=== PATIENT | male | born 1975 | race Caucasian/White ===

== ENCOUNTER 2022-10-12 13:41 | Emergency (ER) | payer OTHER, MEDICARE ==
[~2022-10-12] VITALS: Ht 180.3 cm; Wt 77.3 kg
[~2022-10-12 13:41] MED LIST: ANUSOL-HC SUPPO25 MG RC; ATARAX 10MG10 MG/TAB PO; ATROPINE SULFATE5 ML OP; B-121000 MCG PO; BUSPAR DIVIDOSE15 MG PO; CALCIUM 600/VIT1 CA1 PO; COZAAR 25MG25 MG/TAB PO; COZAAR100 MG PO; DEBROX OT; DEPAKOTE500 MG PO; DESYREL 50MG50 MG PO; DUO-KAPS1 CAP PO; FISH OIL 500 M1 EAC1 PO; FISH OIL1000 MG PO; FLEXERIL 1010 MG/TAB PO; FOLIC ACID 11 MG/TA1 PO; HYDROCORTISONE30 GM RC; IMITREX100 MG PO; INDERAL 20MG20 MG PO; INDERAL LA 80MG80 MG PO; IRON325 M2 PO; K-DUR20 MEQ PO; KEPPRA 500MG500 MG PO; KEPPRA1000 MG PO; LIDODERM 5% PATC1 EA TP; LIPITOR 80MG80 MG PO; MAG-OX 400400 MG/TAB PO; MICARDIS40 MG PO; MULTI-VITAMIN W1 TA1 PO; NAPROSYN500 MG PO; NATURAL IRON65 MG; OCEAN NASAL SPR45 ML NS; OMEGA-3 1000 MG1 CAP PO; OMNIPRED 5 ML5 ML OP; PENTASA250 MG PO; PEPCID 20MG TAB20 MG PO; PERIACTIN 4MG TA4 MG PO; PRILOSEC 20MG20 MG PO; PROBIOTIC ACID1 EAC3 PO; PROTONIX 40MG T40 MG PO; PROZAC 20MG20 MG PO; RESTORIL 1515 MG/CAP PO; ROXICODONE 55 MG/TAB PO; SEROQUEL50 MG PO; SOLARAZE3% TOP; THIAMINE 1100 MG/TAB PO; TOPAMAX 25MG25 M1 PO; VALTREX 50500 MG/TAB PO; VALTREX1 GM PO; VIGAMOX 0.5% 3 M3 ML OP; VISTARIL 2525 MG/CAP PO; VITAMIN B12 1541 TAB PO; VITAMIN D 1001000 IU PO; VITAMIN D31000 I1 PO; VITAMIN D31000 IU PO; VITAMINC1000TA PO; VOLTAREN GEL 1%1 TU TP; ZOFRAN ODT4 MG PO
[2022-10-12 13:51] VITALS: TEMP 98.1
[2022-10-12 15:08] LABS: BASO % 1.2 % (0.0-2.0); EOS % 1.2 % (0.0-4.0); GRAN # 1.3 K/mm3 (1.4-6.5); HEMATOCRIT 40.8 % (42.0-52.0); HEMOGLOBIN 13.7 g/dl (13.5-18.0); LYMPH # 0.8 K/mm3 (1.2-3.4); LYMPH % 32.8 % (20.0-51.0); MEAN CELL VOLUME 93 fl (80.0-100.0); MEAN CORPUSCULAR HEMOGLOBIN 31 pg (27-31); MEAN CORPUSCULAR HGB CONC 34 g/dl (33.0-37.0); MEAN PLATELET VOLUME 9.5 fl (7.4-10.4); MONO # 0.3 K/mm3 (0.1-0.6); MONO % 13.4 % (1.7-9.3); PLATELET COUNT 150 K/mm3 (130-400); RED BLOOD COUNT 4.38 M/mm3 (4.20-5.60); REDCELL DISTRIBUTION WIDTH-CV 17.2 % (11.5-14.5)
[2022-10-12 15:08] LABS: COLLECTION METHOD CLEAN CATCH
[2022-10-12 15:15] LABS: SQUAMOUS EPITHELIAL 0-2 /hpf (0-10); URINE BACTERIA None Seen /hpf (NONE SEEN); URINE RBC 0-2 /hpf (0-2)
[2022-10-12 15:18] LABS: URINE APPEARANCE Clear (CLEAR/HAZY); URINE COLOR Amber (YELLOW)
[2022-10-12 15:19] LABS: URINE BLOOD 2+ (NEGATIVE); URINE GLUCOSE Negative (NEGATIVE); URINE KETONE 1+ (NEGATIVE); URINE NITRATE Negative (NEGATIVE); URINE PROTEIN(semi-quant) 3+ (NEGATIVE)
[2022-10-12 15:22] LABS: TRICYCLIC ANTIDEPRESS URINE NEGATIVE
[2022-10-12 15:32] LABS: ALANINE AMINOTRANSFERASE 48 U/L (0-55); ALKALINE PHOSPHATASE 90 U/L (40-150); ANION GAP 22 mmol/L (7-16); AST,SGOT 187 U/L (5-34); BILIRUBIN,TOTAL 0.4 mg/dL (0.2-1.2); BLOOD UREA NITROGEN 6 mg/dL (9-21); CALCIUM 8.5 mg/dL (8.4-10.2); CARBON DIOXIDE 18 mmol/L (22-29); CHLORIDE 99 mmol/L (98-107); CREATININE, serum 0.72 mg/dL (0.72-1.25); GLUCOSE 80 mg/dL (70-99); POTASSIUM 3.9 mmol/L (3.5-4.5); SODIUM 139 mmol/L (136-145); TOTAL PROTEIN 7.2 gm/dL (6.2-8.1)
[2022-10-12 15:36] LABS: ACETAMINOPHEN < 1.0 ug/mL (10-30); SALICYLATE < 5.0 mg/dL (15.0-30.0)
[2022-10-12 15:38] LABS: ALCOHOL(ethanol),MEDICAL 434 mg/dL (0-10)
[2022-10-12 18:47] VITALS: BP 147/82; PULSE 86
== END 2022-10-12 18:47 | disposition home or self-care (01) ==
LOC: COL.ER 13:41
PROVIDERS: Nurse Practitioner
DX: F10.129 Alcohol abuse with intoxication, unspecified (principal); F43.10 Post-traumatic stress disorder, unspecified; Y90.8 Blood alcohol level of 240 mg/100 ml or more

== ENCOUNTER 2023-06-08 16:03 | Inpatient (IN) | payer OTHER ==
[~2023-06-08] VITALS: Ht 180.3 cm; Wt 73.3 kg
[2023-06-08] VITALS (132 sets, daily range): BP systolic 116; BP diastolic 83; PULSE 90; TEMP 98.8; O2SAT 81–100
[~2023-06-08 16:03] MED LIST changes: +ATARAX 25MG25 MG/TAB PO; +FERROUS SU325 MG/TAB PO; +MOBIC15 MG PO; +NEURONTIN100 MG/CAP PO; +REFRESH TEARS 330 ML OU; -VISTARIL 2525 MG/CAP PO
[2023-06-08 16:47] LABS: BASO % 0.2 % (0.0-2.0); GRAN % 83.1 % (42.2-75.2); HEMATOCRIT 40.8 % (42.0-52.0); HEMOGLOBIN 14.3 g/dl (13.5-18.0); LYMPH # 0.3 K/mm3 (1.2-3.4); LYMPH % 4.2 % (20.0-51.0); MEAN CELL VOLUME 96 fl (80.0-100.0); MEAN CORPUSCULAR HEMOGLOBIN 34 pg (27-31); MEAN CORPUSCULAR HGB CONC 35 g/dl (33.0-37.0); MEAN PLATELET VOLUME 11.1 fl (7.4-10.4); MONO # 0.7 K/mm3 (0.1-0.6); MONO % 12.2 % (1.7-9.3); PLATELET COUNT 131 K/mm3 (130-400); RED BLOOD COUNT 4.25 M/mm3 (4.20-5.60); REDCELL DISTRIBUTION WIDTH-CV 14.2 % (11.5-14.5)
[2023-06-08 17:39] LABS: ALANINE AMINOTRANSFERASE 37 U/L (0-55); ALBUMIN 3.8 gm/dL (3.5-5.0); ALKALINE PHOSPHATASE 63 U/L (40-150); ANION GAP 18 mmol/L (7-16); AST,SGOT 104 U/L (5-34); BILIRUBIN,TOTAL 1.5 mg/dL (0.2-1.2); BLOOD UREA NITROGEN 11 mg/dL (9-21); CALCIUM 8.9 mg/dL (8.4-10.2); CARBON DIOXIDE 23 mmol/L (22-29); CHLORIDE 97 mmol/L (98-107); CREATININE, serum 1.26 mg/dL (0.72-1.25); GLUCOSE 133 mg/dL (70-99); LIPASE 16 U/L (8-78); POTASSIUM 3.3 mmol/L (3.5-4.5); SODIUM 138 mmol/L (136-145); TOTAL PROTEIN 7.3 gm/dL (6.2-8.1)
[2023-06-08 17:42] LABS: ALCOHOL(ethanol),MEDICAL < 10 mg/dL (0-10); MAGNESIUM < 0.6 mg/dL (1.6-2.6)
[2023-06-08 17:54] LABS: TSH w REFLEX 2.669 uIU/mL (0.350-4.940)
[2023-06-08 20:10] LABS: INR 1.1 (0.8-3.0)
--- NOTE | 2023-06-08 21:08 | NUR ---
PATIENT ARRIVED TO UNIT VIA COT ACCOMPANIED BY RN. PATIENT DOES NOT APPEAR TO BE IN DISTRESS AND ABLE TO ANSWER QUESTIONS/FOLLOW COMMANDS APPROPRIATELY AT THIS TIME.
[2023-06-09] VITALS (1100 sets, daily range): BP systolic 90–121; BP diastolic 61–88; PULSE 57–96; TEMP 97.5–98.4; O2SAT 82–100
--- NOTE | 2023-06-09 01:03 | NUR ---
SINCE ARRIVAL TO THE UNIT, PATIENT HAS BEEN ALERT BUT CONFUSED. MILD ANXIETY NOTED WELL OBSIOUS HALLUCINATIONS. CIWA BEING USED PER PROTOCOL. PATIENT STATES THAT HE IS TO GO TO [place] 06/09/23 FOR REHAB - UNSURE ON DETAILS. RN HAS NOT HEARD ANYTHING REGARDING THIS INFORMATION. PATIENT ALSO STATED THAT "MY LAST ALCOHOLIC DRINK WAS 2-3 WEEKS AGO". PATIENT IS HAVING BOUTS OF LOOSE STOOLS AND CLAIMS HE HAS HAD THIS FOR A COUPLE DAYS. UNABLE TO GET A URINE SAMPLE DUE TO LOOSE STOOL AND INABILITY TO FOLLOW INSTRUCTIONS. IN ADDITION, PATIENT IS CONTINUOUSLY PULLING SPO2 PROBE OFF - RN HAS TRIED REPLACING IT AND MOVING IT TO ANOTHER LOCATION MULTIPLE TIMES . PATIENT RAPIDLY GETS UP WHEN HE FEELS THE URGE TO DEFECATE/URINATE - STAFF IS UNABLE TO COAX HIM TO SLOWLY MOVE TO COMMODE TO DECREASE FALL RISK. PATIENT IS IN OBSERVABLE AREA AND BED IS IN LOW POSITION. SEIZURE PERCAUTIONS IN PLACE.
--- NOTE | 2023-06-09 03:50 | NUR ---
PRECEDEX GTT STARTED PER HOSPITALIST DUE TO PATIENT REQUIRING 1-2MG OF ATIVAN Q1HR. PATIENT IS FREQUENTLY BECOMING ANXIOUS AND AGITATED WHEN NEEDING TO USE THE RESTROOM - MULTIPLE BOUTS OF LOOSE DIARRHEA REQUIRING BED CHANGES. STAFF IS UNABLE TO REDIRECT HIM OR GET HIM TO MOVE SLOWLY - 3 PERSON ASSIST REQUIRED TO SAFELY GET PATIENT TO COMMODE OR TO LIE BACK DOWN. PATIENT UNWILLING TO USE BEDPAN. PATIENT SAFETY AT HIGH RISK.
[2023-06-09 05:48] LABS: BASO % 0.3 % (0.0-2.0); EOS % 0.3 % (0.0-4.0); GRAN # 2.7 K/mm3 (1.4-6.5); LYMPH # 0.5 K/mm3 (1.2-3.4); LYMPH % 12.2 % (20.0-51.0); MEAN CELL VOLUME 97 fl (80.0-100.0); MEAN CORPUSCULAR HGB CONC 34 g/dl (33.0-37.0); MEAN PLATELET VOLUME 10.4 fl (7.4-10.4); MONO # 0.7 K/mm3 (0.1-0.6); MONO % 17.9 % (1.7-9.3); PLATELET COUNT 92 K/mm3 (130-400); REDCELL DISTRIBUTION WIDTH-CV 14.5 % (11.5-14.5)
[2023-06-09 05:57] LABS: MEAN CORPUSCULAR HEMOGLOBIN 33 pg (27-31)
[2023-06-09 06:04] LABS: CALCIUM 7.7 mg/dL (8.4-10.2); CREATININE, serum 0.87 mg/dL (0.72-1.25); POTASSIUM 3.3 mmol/L (3.5-4.5)
--- NOTE | 2023-06-09 07:47 | NUR ---
Patient has been reported to be voilent, startles easily, and has been impulsive. Currently he is on precedex and CIWA protocol. Dr just started valium taper and added antipsychotic. Magnesium is critically low at 0.7 per lab this am, and will have replacements. Potassium protocol has been implemented and is currently being replaced PO. CIWAs are currently q2, neuro q4 hr at this time. Will continue to monitor for significant changes.
[2023-06-09] MEDS ORDERED: BUSPAR 30MG30 MG/TAB PO (08:52)
[2023-06-09] MEDS ORDERED: REFRESH CELLUVI1 SOL OU (08:53)
[2023-06-09] MEDS ORDERED: VITAMIN D31000 IU PO (08:53)
[2023-06-09] MEDS ORDERED: B-121000 MCG PO (08:54)
[2023-06-09] MEDS ORDERED: PEPCID 20MG TAB20 MG PO (08:58)
[2023-06-09] MEDS ORDERED: FOLIC ACID 11 MG/TA1 PO (09:00)
[2023-06-09] MEDS ORDERED: FERROUS SU325 MG/TAB PO (09:00)
[2023-06-09] MEDS ORDERED: NEURONTIN100 MG/CAP PO (09:00)
[2023-06-09] MEDS ORDERED: LIDODERM 5% PATC1 EA TP (09:01)
[2023-06-09] MEDS ORDERED: MAG-OX 400400 MG/TAB PO (09:02)
[2023-06-09] MEDS ORDERED: NATURE'S BLEND100 M2 PO (09:03)
[2023-06-09] MEDS ORDERED: SEROQUEL50 MG PO (09:03)
[2023-06-09] MEDS ORDERED: CENTRUM SILVER1 TAB PO (09:03)
[2023-06-09] MEDS ORDERED: DESYREL 50MG50 MG PO (09:04)
--- NOTE | 2023-06-09 15:51 | NUR ---
Check Writer Salesperson collaborated with Mattie [place] Check Writer Salesperson and Luci Jimenez Post Form Remover to discuss discharge planning as patient is not oriented at this time. Mattie advised patient is still living in [place] and has primary care through the [facility] clinic. Patient also has in home medication management provided by [facility], in home services and case management with [facility], and a [place] clinical [facility]Gino that does home visits about twice a month. Mattie advised patient had been approved to go to [facility] in [place], [place] which is a dual diagnosis facility (Alcohol Use Disorder/PTSD). Mattie advised patient was lined up to admit there soon and that was helping arrange this. KARRIE contacted who advised patient was scheduled to admit today, however it is now on hold due to hospitalization. stated she has been in contact with the facility and they still plan to admit patient when he discharges from the hospital. KARRIE contacted [facility] and spoke with Everardo, who confirmed the above and stated they would still accept patient when he is ready for discharge. Everardo advised they also provide transportation and would come get him. Everardo inquired about potential discharge date. KARRIE advised patient was in the ICU and not stable for discharge at this time, but that she would keep him updated. KARRIE faxed clinical updates including nursing notes, MAR, and progress notes. KARRIE attempted to follow up later in the afternoon to discuss any barriers to acceptance and/or parameters for when patient is stable to admit there, but was only able to leave a message. [facility] [place], [place] Office ph#[phone] Everardo ph#[phone] Luci Jimenez ph#[phone] Patient does not have Advance Directives or DPOA-HC. Next of kin would be his daughter, Emilee (ph#[phone]).
[2023-06-10] VITALS (530 sets, daily range): BP systolic 104–147; BP diastolic 78–95; PULSE 67–101; TEMP 98–101.8; O2SAT 70–100
[2023-06-10 03:18] LABS: COLLECTION METHOD CLEAN CATCH
[2023-06-10 03:27] LABS: PH 7.5 (5.0-8.5); URINE APPEARANCE Clear (CLEAR/HAZY); URINE BLOOD Negative (NEGATIVE); URINE COLOR Yellow (YELLOW); URINE GLUCOSE Negative (NEGATIVE); URINE KETONE Negative (NEGATIVE); URINE NITRATE Negative (NEGATIVE); URINE PROTEIN(semi-quant) Negative (NEGATIVE); URINE UROBILINOGEN 0.2 E.U/dL (0.2-1.0)
[2023-06-10 03:35] LABS: TRICYCLIC ANTIDEPRESS URINE NEGATIVE
[2023-06-10 03:38] LABS: URINE RBC None Seen /hpf (0-2)
[2023-06-10 03:39] LABS: SQUAMOUS EPITHELIAL 0-2 /hpf (0-10)
[2023-06-10 05:59] LABS: ALBUMIN 3.3 gm/dL (3.5-5.0); BILIRUBIN,TOTAL 0.7 mg/dL (0.2-1.2); CALCIUM 8.5 mg/dL (8.4-10.2); CREATININE, serum 0.65 mg/dL (0.72-1.25); MAGNESIUM 1.2 mg/dL (1.6-2.6); PHOSPHOROUS 2.3 mg/dL (2.3-4.7); TOTAL PROTEIN 6.4 gm/dL (6.2-8.1)
--- NOTE | 2023-06-10 10:10 | NUR ---
Data: Patient accepted Cloth Presser visit offered to him during Cloth Presser rounds. Assessment: Patient is [employer]; was in the ; has had a difficult time adjusting since the . Patient has located a substance abuse treatment facility in [place] that he believes will help him to overcome some of his difficulties. Seizures brought him to the ER. He hopes they will not keep him from participating in this treatment program. Plan of Care: Cloth Presser provided compassionate listening; assurance of understanding; a bible; and prayer. Cloth Presser educated Patient how to request Cloth Presser if further discussions are needed/desired.
--- NOTE | 2023-06-10 10:15 | NUR ---
Patient refusing to take his keppra. This nurse attempted to educate on the purpose of the medication and the potential consequences of not taking it. Patient states he understands but still refuses. Hospitalist notified.
--- NOTE | 2023-06-10 12:37 | NUR ---
Patient transfered up to medical floor via wheelchair. Alert and oriented per baseine and in no distress upon transfer.
--- NOTE | 2023-06-10 12:50 | NUR ---
Patient to room 357 from the ICU by wheelchair. A&O. VSS. IV CDI. Denies pain and discomfort. Nurse orientated the patient to location, call light and room. No further needs expressed. Call light within reach. Bed alarm on
--- NOTE | 2023-06-10 14:20 | NUR ---
KARRIE met with patient to discuss discharge plan. Patiently provides that from [address] [place] [address] will be picking him up upon dc on morning of June 112023. at noon. provided that she would be contacting receiving facility to coordinate merchandise pickup/receiving associate and arrival time for transport to program in [facility]: Office [phone] Everardo: [phone] KARRIE will fax dc documenation to facilty upon DC.
--- NOTE | 2023-06-10 14:38 | NUR ---
Physician will be writing a presciption for patient on physcial copy, please fax documentation of prescritions to facility with DC orders to [phone]
[2023-06-10] MEDS ORDERED: KEPPRA 500MG500 MG PO (14:39)
--- NOTE | 2023-06-10 20:10 | NUR ---
Report from PCT of temp of 101.8. Tylenol given per dr morales. Assessment complete. A&Ox4 but foregetful. Denies nausea/shortness of breath. States he has generalized aches since he had a seizure. Refusing Keppra at this time. Discussed this with him at length but still refuses to take that as well as the seroquel. 1mg PO ativan givn for CIWA score of 8. Plan of care discussed for this shift to include meds/pain control/CIWA/calling for questions/concerns. Verbalizes understanding. Call light in reach/bed alarm on. Will monitor.
[2023-06-11 00:49] VITALS: BP 134/89; PULSE 100; TEMP 102.6
--- NOTE | 2023-06-11 01:00 | NUR ---
Patient has been very difficult this shift-refusing his Keppra and ativan as well as tylenol. Patient has ran a fever of 101.8-102.6 on several checks. Did finally accept the tylenol but stated he will not take anymore. Scoring 13 on CIWA at this check-finally took ativan for this but stated he wouldnt take anymore. Explained to patient that he has been receiving this medication the last two days and it is needed for detox. States he hasnt drank in over a month and he is curently not detoxing and will not take anymore medications.
--- NOTE | 2023-06-11 02:18 | NUR ---
MATTHEW Khanna notified of repeat temp of 102.2. States she will come see the patient as he has stated he will not take anymore medications.
[2023-06-11 02:19] VITALS: BP 124/83; PULSE 98; TEMP 102.2
[2023-06-11 04:15] VITALS: BP 120/81; PULSE 93; TEMP 98.5
--- NOTE | 2023-06-11 05:00 | NUR ---
Patients temp has come down to 98.5 after ibuprofen. Has been a little more cooperative with staff later this shift. Did urinate on the floor. TELE reporting SR. Currently on RA. Refused AM protonix. Denies current questions/concerns. Call light in reach. Will monitor.
[2023-06-11 05:57] VITALS: BP 121/77; PULSE 93; TEMP 98.7
[2023-06-11 07:55] VITALS: BP 121/85; PULSE 101; TEMP 97.9
[2023-06-11] MEDS ORDERED: LIPITOR 40MG TA40 MG PO (09:11)
[2023-06-11] MEDS ORDERED: WALKER MC (09:19)
--- NOTE | 2023-06-11 10:20 | NUR ---
THIS RN CALLED SHAWNA. PER SHAWNA SHE WILL ARRIVE AT NOON TO RN ADVANCED PATIENT, TAKE HIM HOME, HELP HIM PACK AND THEN SHE WILL ASSIST WITH CORRELATING TRANSPORTATION TO [facility]. THIS RN FAXED [employer] DISCHARGE PAPER WORK, A FORM WITH ADMISSION/DISCHARGE DATES, MEDS GIVEN AND PRESCRIPTIONS TO [address] [place] [address]. ALL OF WHICH ARE ALSO PRINTED FOR TRANSPORT FOR RN ADVANCED.
--- NOTE | 2023-06-11 11:00 | NUR ---
PATIENT WAS ASSISTED TO SHOWER AND CHANGE WITH THE ASSISTANCE OF 2 PCT. PATIENT DRESSED, IV AND TELE REMOVED. AWAITING TRANSPORT
--- NOTE | 2023-06-11 12:15 | NUR ---
SHAWNA ARRIVED TO NUT SIFTER PATIENT. SHAWNA GIVEN ALL PAPER WORK REQUESTED. MELODIE TAKEN TO ER ENTRANCE WHERE HE LEFT IN STB[place] CONDITION WITH SHAWNA (WORKS WITH [facility]).
== END 2023-06-11 13:02 | disposition home or self-care (01) | DRG 71 ==
LOC: COL.ER 16:03 → ICU 20:02 → MEDICAL 06-10 12:40
PROVIDERS: Emergency Medicine; Nurse Practitioner Family; ADMIT Internal Medicine
DX: G93.40 Encephalopathy, unspecified (principal); F10.239 Alcohol dependence with withdrawal, unspecified; K50.90 Crohn's disease, unspecified, without complications; N17.9 Acute kidney failure, unspecified; G40.909 Epilepsy, unspecified, not intractable, without status epilepticus; I10 Essential (primary) hypertension; F43.10 Post-traumatic stress disorder, unspecified; E83.42 Hypomagnesemia; E87.6 Hypokalemia; K76.0 Fatty (change of) liver, not elsewhere classified; K21.9 Gastro-esophageal reflux disease without esophagitis; G43.909 Migraine, unspecified, not intractable, without status migrainosus; E78.5 Hyperlipidemia, unspecified; H54.61 Unqualified visual loss, right eye, normal vision left eye; S00.81XA Abrasion of other part of head, initial encounter; S80.819A Abrasion, unspecified lower leg, initial encounter; S30.810A Abrasion of lower back and pelvis, initial encounter; W18.30XA Fall on same level, unspecified, initial encounter; Y92.009 Unspecified place in unspecified non-institutional (private) residence as the place of occurrence of the external cause
CPT/HCPCS: J1953; J2060; J2405; J3411; J3475; J7030

== ENCOUNTER 2024-01-26 20:46 | Emergency (ER) | payer OTHER ==
[~2024-01-26] VITALS: Ht 180.3 cm; Wt 81.8 kg
[~2024-01-26 20:46] MED LIST changes: +BUSPAR 30MG30 MG/TAB PO; +CENTRUM SILVER1 TAB PO; +LIPITOR 40MG TA40 MG PO; +NATURE'S BLEND100 M2 PO; +REFRESH CELLUVI1 SOL OU; +WALKER MC
[2024-01-26] MEDS ORDERED: Morphine 4 MG/ML VIAL IV ONE (21:45)
[2024-01-26 21:53] LABS: BASO % 0.5 % (0.0-2.0); EOS % 0.5 % (0.0-4.0); GRAN # 4.4 K/mm3 (1.4-6.5); GRAN % 68.9 % (42.2-75.2); HEMOGLOBIN 12.1 g/dl (13.5-18.0); LYMPH % 14.9 % (20.0-51.0); MEAN CELL VOLUME 104 fl (80.0-100.0); MEAN CORPUSCULAR HEMOGLOBIN 36 pg (27-31); MEAN CORPUSCULAR HGB CONC 34 g/dl (33.0-37.0); MEAN PLATELET VOLUME 10.4 fl (7.4-10.4); MONO % 14.9 % (1.7-9.3); PLATELET COUNT 139 K/mm3 (130-400); REDCELL DISTRIBUTION WIDTH-CV 13.9 % (11.5-14.5)
[2024-01-26 21:54] LABS: HEMATOCRIT 35.4 % (42.0-52.0)
[2024-01-26 22:09] LABS: ALBUMIN 3.6 g/dL (3.5-5.0); BILIRUBIN,TOTAL 0.6 mg/dL (0.2-1.2); CALCIUM 8.3 mg/dL (8.4-10.2); CREATININE, serum 1.13 mg/dL (0.72-1.25); POTASSIUM 3.5 mEq/L (3.5-4.5); TOTAL PROTEIN 6.6 g/dl (6.2-8.1)
[2024-01-26 23:11] LABS: SALICYLATE < 5.0 mg/dL (15.0-30.0)
[2024-01-26 23:29] LABS: TSH w REFLEX 4.509 uIU/mL (0.350-4.940)
[2024-01-26] MEDS ORDERED: HYDROcodone/Acetaminophen 10-325 MG TAB PO ONE (23:45)
[2024-01-27 01:51] LABS: COLLECTION METHOD CLEAN CATCH
[2024-01-27 01:58] LABS: URINE APPEARANCE CLEAR (CLEAR/HAZY); URINE BLOOD TRACE (NEGATIVE); URINE COLOR YELLOW (YELLOW); URINE GLUCOSE NEGATIVE (NEGATIVE); URINE KETONE NEGATIVE (NEGATIVE); URINE NITRATE NEGATIVE (NEGATIVE); URINE PROTEIN(semi-quant) 1+ (NEGATIVE); URINE UROBILINOGEN 0.2 E.U/dL (0.2-1.0)
[2024-01-27 02:10] LABS: TRICYCLIC ANTIDEPRESS URINE NEGATIVE (NEGATIVE)
[2024-01-27 05:30] VITALS: TEMP 99.4
[2024-01-27] MEDS ORDERED: diazePAM 5 MG TAB PO ONE (07:30)
[2024-01-27] MEDS ORDERED: Home Diazepam 5 MG #2 TAB/PACK PO ONE ×2 (10:30)
[2024-01-27 11:14] VITALS: BP 117/70; PULSE 85
[2024-01-27] MEDS ORDERED: LIBRIUM 25M25 MG/CAP PO (16:46)
== END 2024-01-27 11:45 ==
LOC: COL.ER 20:46
PROVIDERS: Emergency Medicine
DX: S51.811A Laceration without foreign body of right forearm, initial encounter (principal); S61.412A Laceration without foreign body of left hand, initial encounter; F10.20 Alcohol dependence, uncomplicated; F22 Delusional disorders; W25.XXXA Contact with sharp glass, initial encounter
CPT/HCPCS: J2270

== ENCOUNTER 2024-01-27 13:31 | Emergency (ER) | payer OTHER ==
[~2024-01-27] VITALS: Ht 180.3 cm; Wt 75.0 kg
[2024-01-27 13:32] VITALS: TEMP 99.5
[2024-01-27] MEDS ORDERED: NS 1,000 ML IV ONE (14:00)
[2024-01-27 14:02] LABS: BASO % 0.4 % (0.0-2.0); GRAN # 6.6 K/mm3 (1.4-6.5); GRAN % 79.2 % (42.2-75.2); LYMPH # 0.4 K/mm3 (1.2-3.4); LYMPH % 5.3 % (20.0-51.0); MEAN CELL VOLUME 104 fl (80.0-100.0); MEAN CORPUSCULAR HGB CONC 35 g/dl (33.0-37.0); MEAN PLATELET VOLUME 10.6 fl (7.4-10.4); MONO # 1.2 K/mm3 (0.1-0.6); MONO % 14.9 % (1.7-9.3); PLATELET COUNT 136 K/mm3 (130-400); RED BLOOD COUNT 2.81 M/mm3 (4.20-5.60); REDCELL DISTRIBUTION WIDTH-CV 13.3 % (11.5-14.5)
[2024-01-27 14:04] LABS: HEMATOCRIT 29.1 % (42.0-52.0); HEMOGLOBIN 10.1 g/dl (13.5-18.0); MEAN CORPUSCULAR HEMOGLOBIN 36 pg (27-31)
[2024-01-27 14:14] LABS: ALBUMIN 3.6 g/dL (3.5-5.0); BILIRUBIN,TOTAL 1.5 mg/dL (0.2-1.2); CALCIUM 8.1 mg/dL (8.4-10.2); CREATININE, serum 1.23 mg/dL (0.72-1.25); POTASSIUM 3.4 mEq/L (3.5-4.5); TOTAL PROTEIN 6.4 g/dl (6.2-8.1)
[2024-01-27] MEDS ORDERED: chlordiazePOXIDE 25 MG CAP PO ONE (15:00)
[2024-01-27] MEDS ORDERED: LIBRIUM 25M25 MG/CAP PO (16:46)
[2024-01-27 17:15] VITALS: BP 118/71; PULSE 99
== END 2024-01-27 17:15 | disposition home or self-care (01) ==
LOC: COL.ER 13:31
PROVIDERS: Emergency Medicine
DX: F10.239 Alcohol dependence with withdrawal, unspecified (principal); E86.0 Dehydration; I10 Essential (primary) hypertension
CPT/HCPCS: J7030

== ENCOUNTER 2024-01-27 19:50 | Inpatient (IN) | payer OTHER ==
[~2024-01-27] VITALS: Ht 185.4 cm; Wt 75.9 kg
[2024-01-27 11:15] VITALS: BP 111/98; PULSE 97; TEMP 99.8
[~2024-01-27 19:50] MED LIST changes: +LIBRIUM 25M25 MG/CAP PO; +Thiamine 100 MG TAB PO SCH
[2024-01-27] MEDS ORDERED: Folic Acid 1 MG,Thiamine 200 MG in NS 1,000 ML IV ONE (20:00)
[2024-01-27] MEDS ORDERED: NS 1,000 ML IV ONE (20:00)
[2024-01-27 20:22] LABS: BASO % 0.3 % (0.0-2.0); EOS % 0.1 % (0.0-4.0); GRAN # 6.1 K/mm3 (1.4-6.5); GRAN % 81.7 % (42.2-75.2); LYMPH # 0.3 K/mm3 (1.2-3.4); LYMPH % 3.4 % (20.0-51.0); MEAN CELL VOLUME 105 fl (80.0-100.0); MEAN CORPUSCULAR HEMOGLOBIN 36 pg (27-31); MEAN CORPUSCULAR HGB CONC 34 g/dl (33.0-37.0); MEAN PLATELET VOLUME 9.9 fl (7.4-10.4); MONO # 1.1 K/mm3 (0.1-0.6); MONO % 14.2 % (1.7-9.3); PLATELET COUNT 116 K/mm3 (130-400); REDCELL DISTRIBUTION WIDTH-CV 13.6 % (11.5-14.5)
[2024-01-27 20:27] LABS: HEMATOCRIT 29.5 % (42.0-52.0)
[2024-01-27 20:52] LABS: ALANINE AMINOTRANSFERASE 42 U/L (0-55); ALBUMIN 3.7 g/dL (3.5-5.0); ALKALINE PHOSPHATASE 55 U/L (40-150); ANION GAP 23 mmol/L (7-16); AST,SGOT 148 U/L (5-34); BILIRUBIN,TOTAL 1.5 mg/dL (0.2-1.2); BLOOD UREA NITROGEN 22 mg/dL (9-21); CALCIUM 8.2 mg/dL (8.4-10.2); CHLORIDE 100 mEq/L (98-107); CREATININE, serum 1.24 mg/dL (0.72-1.25); GLUCOSE 99 mg/dL (70-99); POTASSIUM 3.6 mEq/L (3.5-4.5); SODIUM 135 mEq/L (136-145); TOTAL PROTEIN 6.6 g/dl (6.2-8.1)
[2024-01-27 20:56] LABS: ALCOHOL(ethanol),MEDICAL < 10 mg/dL (0-10)
[2024-01-27] MEDS ORDERED: LORazepam 2 MG/ML 1 ML VIAL IV ONE (21:15)
[2024-01-27 21:22] LABS: COLLECTION METHOD CLEAN CATCH
[2024-01-27 21:32] LABS: URINE APPEARANCE CLEAR (CLEAR/HAZY); URINE BLOOD NEGATIVE (NEGATIVE); URINE COLOR YELLOW (YELLOW); URINE GLUCOSE NEGATIVE (NEGATIVE); URINE KETONE 1+ (NEGATIVE); URINE NITRATE NEGATIVE (NEGATIVE); URINE PROTEIN(semi-quant) TRACE (NEGATIVE)
[2024-01-27 21:40] LABS: TRICYCLIC ANTIDEPRESS URINE NEGATIVE (NEGATIVE)
[2024-01-27] MEDS ORDERED: Mag/Al Hydrox/Simeth Susp 30 ML CUP PO PRN ×2 (22:15→22:30)
[2024-01-27] MEDS ORDERED: NS 1,000 ML IV SCH (22:30)
[2024-01-27] MEDS ORDERED: Magnesium Sulfate 4% 50 ML IV ONE ×2 (22:30→23:45)
[2024-01-27] MEDS ORDERED: levETIRAcetam 500 MG TAB PO SCH (22:30)
[2024-01-27] MEDS ORDERED: LORazepam 2 MG/ML 1 ML VIAL IV PRN (22:30)
[2024-01-27] MEDS ORDERED: Ondansetron 4 MG/2 ML VIAL IV PRN (23:00)
[2024-01-27 23:38] VITALS: O2SAT 85
[2024-01-27 23:41] VITALS: O2SAT 78
[2024-01-27 23:43] LABS: ALBUMIN 3.3 g/dL (3.5-5.0); BILIRUBIN,TOTAL 0.9 mg/dL (0.2-1.2); CALCIUM 7.5 mg/dL (8.4-10.2); CREATININE, serum 0.9 mg/dL (0.72-1.25); POTASSIUM 3.7 mEq/L (3.5-4.5); TOTAL PROTEIN 5.9 g/dl (6.2-8.1)
[2024-01-27 23:44] VITALS: O2SAT 97
[2024-01-27 23:45] LABS: MAGNESIUM 0.9 mg/dL (1.6-2.6)
[2024-01-28] VITALS (34 sets, daily range): BP systolic 69–133; BP diastolic 44–96; PULSE 61–114; TEMP 97.9–99.8; O2SAT 68–97
--- NOTE | 2024-01-28 02:48 | NUR ---
REPORT CALLED BY KELSEY WILLIAMSON. PT TRANSPORTED TO UNIT VIA W/C, PT WAS CONFUSED, HALLUCINATING BUT EASILY DIRECTABLE. PT WAS PLACED IN BED AFTER URINATING IN THE TOILET, SIEZURE PRECAUTIONS INITIATED, PADS PLACED ON BED. PATIENT ORIENTED TO SELF ONLY. TWO DOSES OF 4MG ATIVAN 30 MINS APART GIVEN, PT STILL CONFUSED, THRASHING, TRYING TO CLIMB OUT OF BED, PULLING ON LINES AND TUBES, PRECEDEX INITIATIED. PT CONT TO SCORE >20 CIWA, AND ADDITIONAL 4MG OF ATIVAN GIVEN. PT STILL THRASHING, HALLUCINATING, TITRATED PRECEDEX BY .1. PATIENT IS CURRENTLY STILL SCORING >20 ON CIWA, AN ADDITIONAL 4MG WAS GIVEN. PATIENT CONTINUES TO REACH OUT, RAMBLE, AND THRASH ABOUT
[2024-01-28 04:24] LABS: BASO % 0.2 % (0.0-2.0); EOS % 0.2 % (0.0-4.0); GRAN % 69.6 % (42.2-75.2); LYMPH # 0.5 K/mm3 (1.2-3.4); LYMPH % 12.3 % (20.0-51.0); MEAN CELL VOLUME 105 fl (80.0-100.0); MEAN CORPUSCULAR HGB CONC 35 g/dl (33.0-37.0); MEAN PLATELET VOLUME 9.7 fl (7.4-10.4); MONO # 0.7 K/mm3 (0.1-0.6); MONO % 17.2 % (1.7-9.3); PLATELET COUNT 103 K/mm3 (130-400); RED BLOOD COUNT 2.22 M/mm3 (4.20-5.60); REDCELL DISTRIBUTION WIDTH-CV 13.7 % (11.5-14.5)
--- NOTE | 2024-01-28 04:25 | NUR ---
PT BLOOD PRESSURES OFTEN HAVE A MAP <65. PATIENT IS STILL SCORING >22, BUT HAS NOT HAD ATIVAN FOR 2 HOURS, PRECEDEX TITRATED BACK TO 0.3. PT STILL THRASHING IN BED, AND ATTEMPTING TO GET OUT OF BED. PATIENTS IS NOT HAVING ISSUES BREATHING AND IS ABLE TO TURN HIS HEAD FROM SIDE TO SIDE.
[2024-01-28 04:28] LABS: HEMATOCRIT 23.3 % (42.0-52.0); HEMOGLOBIN 8.1 g/dl (13.5-18.0); MEAN CORPUSCULAR HEMOGLOBIN 36 pg (27-31)
[2024-01-28 04:34] LABS: PARTIAL THROMBOPLASTIN TIME 30.6 SECONDS (26.0-37.0)
[2024-01-28 04:40] LABS: ALBUMIN 2.9 g/dL (3.5-5.0); BILIRUBIN,TOTAL 0.7 mg/dL (0.2-1.2); CALCIUM 7.3 mg/dL (8.4-10.2); CREATININE, serum 0.78 mg/dL (0.72-1.25); POTASSIUM 3.8 mEq/L (3.5-4.5); TOTAL PROTEIN 5.2 g/dl (6.2-8.1)
[2024-01-28] MEDS ORDERED: NS 1,000 ML IV ONE (04:45)
[2024-01-28] MEDS ORDERED: diazePAM 5 MG TAB PO PRN (05:30)
--- NOTE | 2024-01-28 06:48 | NUR ---
PT ATTEMPTED TO LEAVE BED W/O ASSISTANCE, THIS NURSE STOPPED HIM BEFORE HE EXITED THE BED, AND ASSISTED HIM TO THE TOILET WITH KELSEY ALCANTAR. PT WAS THE MOST LUCID HE HAD BEEN THE ENTIRE SHIFT, AND STATES THAT HE DOES NOT REMEMBER ANYTHING THAT HAPPENED LAST NIGHT, BUT WAS STILL NOT QUITE SURE WHERE HE WAS, OR THE MONTH. PT ASSISTED BACK TO BED. ONCE IN BED PT STARTS WEAKLY SHOUTING OUT "GO FUCK YOURSELVES" AND "GO AWAY" WHEN NO BODY WAS IN THE ROOM.
[2024-01-28] MEDS ORDERED: Pantoprazole 40 MG in NS 10 ML IV SCH (07:00)
--- NOTE | 2024-01-28 07:00 | NUR ---
PT SLEEPING IN BED. PT IS ON RA. PT IS SR ON TELE. PTS BP FLUCTUATING FROM UPPER 90'S TO 120'S. SEIZURE PRECAUTIONS IN PLACE. PT IS A FALL RISK AND FALL PRECAUTIONS IN PLACE, BED ALARM ACTIVE. PT HAS IVF RUNNING. CALL LIGHT WITHIN REACH.
[2024-01-28] MEDS ORDERED: Multivitamin TAB PO SCH (08:00)
--- NOTE | 2024-01-28 08:31 | NUR ---
PT SLEEPING QUIETLY IN BED. VSS. SEIZURE PADS IN PLACE. FALL PRECAUTIONS IN PLACE. BEDALARM ACTIVE. IVF RUNNING WITH NO COMPLICATIONS. CALL LIGHT WITHIN REACH.
[2024-01-28] MEDS ORDERED: Sennosides/Docusate 8.6-50 MG TAB PO SCH (09:00)
[2024-01-28] MEDS ORDERED: Folic Acid 1 MG TAB PO SCH (09:00)
--- NOTE | 2024-01-28 09:10 | NUR ---
0840-SPOKE WITH HIGINIO IN PHARMACY REGARDING ORDERS FOR BOTH PO AND IV THIAMINE. WILL GIVE TWO DAYS OF IV THEN SWITCH TO PO. 904-MESSAGED REGARDING DIET ORDER. PT PASSED BEDSIDE SWALLOW. PT TOLERATED PO MEDS WITH NO ISSUES. AWAITING CALL BACK.
--- NOTE | 2024-01-28 09:35 | NUR ---
SPOKE WITH REGARDING HGB DECREASE. PT IS ON IVF. SLIGHT BLOODY DRAINAGE FROM LACERATION SITES. NO BLOODY URINE, STOOLS, OR EMESIS. STAT H&H ORDERED. LAB CALLED. WILL KEEP NPO AT THIS TIME.
[2024-01-28] MEDS ORDERED: busPIRone 7.5 MG TABLET PO SCH (09:45)
[2024-01-28] MEDS ORDERED: Ferrous Sulfate 325 MG TAB PO SCH (09:45)
[2024-01-28] MEDS ORDERED: Magnesium Oxide 400 MG TAB PO SCH (09:46)
[2024-01-28 09:50] LABS: HEMATOCRIT 24.2 % (42.0-52.0); HEMOGLOBIN 8.4 g/dl (13.5-18.0)
--- NOTE | 2024-01-28 10:17 | NUR ---
DRESSINGS CHANGED TO R FOREARM AND R BICEP. FOREARM SITE HAS MULTIPLE SMALL LACERATION. SOME WITH STERI STRIPS AND SOME WITH SUTURES. SLIGHT BLOODY DRAINAGE NOTED. BICEP IS SWOLLEN, BRUISED, AND TIGHT. SUTURES TO INNER BICEP WITH SLIGHT BLOODY DRAINAGE. PULSES PALPABLE. PT HAS CLOSE TO NORMAL ROM. PT DENIES NUMBNESS OR TINGLING IN ARM, HAND OR FINGERS. H&H BACK AND SLIGHLY HIGHER THAN AM RESULTS. NOTIFIED OF ALL OF THE ABOVE. WILL ORDER DIET AT THIS TIME.
--- NOTE | 2024-01-28 10:26 | NUR ---
SW attempted to complete intake for patient with patient. Patient's cognition appeared to altered. SW attempted to call life partner Emilee Barragan [phone], but when calling number the person provided this is the wrong number for Emilee. SW then attempted to call the next person of kin daughter Jaida Barragan [phone], but there was no answer. KARRIE will make an effort to re call numbers later on this day to complete intake. KARRIE will continue to follow.
--- NOTE | 2024-01-28 22:42 | NUR ---
PATIENT IN BED, SIEZURE PADS IN PLACE. PATIENT IS RESTLESS, HAS MILD TREMORS AND IS ORIENTED TO SELF ONLY. WHEN HAVING A CONVERSATION WITH HIM, HIS RESPONSES WERE UNRELATED TO THE CONVERSATION. PATIENT FREQUENTLY TRYING TO GET OUT OF BED BUT WAS REDIRECTABLE. PATIENT USED URINAL AT BEDSIDE W/ NO ISSUES, BUT CONT TO EXHIBIT RESTLESS BEHAVIOR. DRINK AND SNACK OFFERED BUT DECLINED. PATIENT SCORE ON CIWA WAS 18, DIAZEPAM GIVEN PER ORDER AND PATIENT BEGINS TO RELAX THOUGH IS STILL HAVING INAPPROPRIATE RESPONSES AND TALKING TO PEOPLE WHO ARE NOT THERE. PATIENT RE-ORIENTED FREQUENTLY THROUGHOUT THE ASSESSMENT, AND WAS EASILY REDIRECTABLE. CALL LIGHT IN REACH, BED ALARM ON AND IN THE LOWEST POSITION IN SIGHT OF THIS NURSE FROM THE WINDOW AT THE NURSES STATION
[2024-01-29] VITALS (12 sets, daily range): BP systolic 106–120; BP diastolic 73–88; PULSE 71–94; TEMP 98.3–99.7; O2SAT 98–99
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
[2024-01-29 05:28] LABS: BASO % 0.3 % (0.0-2.0); EOS % 0.9 % (0.0-4.0); GRAN # 2.5 K/mm3 (1.4-6.5); GRAN % 72.5 % (42.2-75.2); LYMPH # 0.4 K/mm3 (1.2-3.4); LYMPH % 12.1 % (20.0-51.0); MEAN CELL VOLUME 105 fl (80.0-100.0); MEAN CORPUSCULAR HGB CONC 34 g/dl (33.0-37.0); MEAN PLATELET VOLUME 9.9 fl (7.4-10.4); MONO # 0.5 K/mm3 (0.1-0.6); MONO % 13.6 % (1.7-9.3); PLATELET COUNT 122 K/mm3 (130-400); RED BLOOD COUNT 2.21 M/mm3 (4.20-5.60); REDCELL DISTRIBUTION WIDTH-CV 14.2 % (11.5-14.5)
[2024-01-29 05:32] LABS: HEMATOCRIT 23.2 % (42.0-52.0); HEMOGLOBIN 7.9 g/dl (13.5-18.0); MEAN CORPUSCULAR HEMOGLOBIN 36 pg (27-31)
[2024-01-29 05:43] LABS: ALBUMIN 2.7 g/dL (3.5-5.0); BILIRUBIN,TOTAL 0.5 mg/dL (0.2-1.2); CALCIUM 7.4 mg/dL (8.4-10.2); CREATININE, serum 0.6 mg/dL (0.72-1.25)
[2024-01-29 05:44] LABS: POTASSIUM 2.8 mEq/L (3.5-4.5)
[2024-01-29] MEDS ORDERED: Potassium Bicarbonate/Citrate 20 MEQ Effervescent TAB PO SCH ×2 (06:00→17:00)
--- NOTE | 2024-01-29 07:30 | NUR ---
THIS NURSE RECIEVED REPORT FROM KELSEY PINEDA. PATIENT OBSERVED TO BE SLEEPING. VITAL SIGNS ARE STABLE. PATIENT HAS NS RUNNING AT 75 ML/HR TO HIS LEFT WRIST IV SITE. BED IS IN LOW POSITION AND CALL LIGHT IS WITHIN PATIENT'S REACH.
[2024-01-29] MEDS ORDERED: Magnesium Sulfate 8% 50 ML IV ONE (08:45)
[2024-01-29] MEDS ORDERED: Thiamine 100 MG TAB PO SCH ×2 (09:00→21:00)
--- NOTE | 2024-01-29 10:41 | NUR ---
KARRIE left a voicemail to Jaida Barragan's number. SW called Emilee's number and the person reports it was a wrong number. K[facility]RIE called [facility] who confirmed pt receives services at their [place] office. She does not have a DPOA-HC for pt on file. She reports Jaida, is pt's ex- [phone]. She confirmed pt sees Dr. Jaki Hernandez at the [facility] and [facility] by the [facility]. She reports pt also uses [facility], for non-skilled services. Pt used to have Home Health, but did not re-certify the program with the [facility]. SW attended clinical rounding and was informed pt was more alert x oriented. Dr. Munoz states pt will move to the medical floor and needs to be evaluated by [facility] prior to discharge. KARRIE met with pt and his caregiver, . Pt reports to live alone in [place]. He confirms to utilize the [facility] in [place] and obtain medications from there. He states he is independent with ADLS and uses a cane for DME. He does not have a DPOA-HC and declined one. He confirms to be from Jaida Barragan and would like her removed. KARRIE advised the team attempted to reach Jaida and Emilee with no response. Pt was agreeable to daughter, Emilee [phone] as his NOK and states her phone number changes often. Pt reports he does have falls at home on rare occasions. He has no further needs for SW. requests a Release of Information be done for Whit Ortega. KARRIE inquired about who this was and what it was form. She reports it to be a neurocare provider and her number as [phone]. KARRIE advised she will wait for this call request. Discharge Plan: home with [facility]
--- NOTE | 2024-01-29 10:51 | NUR ---
SHAWNA, CHEF CONCIERGE FROM [address] [place] [address] IS AT BEDSIDE. PATIENT ATTEMPTED TO GET AHOLD OF DAUGHTER, DAPHNE, WITH NO ANSWER. PATIENT ALSO STATED HIS PHONE WAS ON THE BEDSIDE TABLE THIS MORNING, BUT THIS NURSE DID NOT NOTE ANYTHING ON THE BEDSIDE TABLE OUTSIDE OF TWO WATER CUPS AND PATIENT'S GLASSES. THIS NURSE LOOKED IN THE PATIENT'S CLOSET FOR BELONGINGS, AND DID NOT NOTE ANY BELONGINGS TO BE IN THE CLOSET. THIS NURSE ALSO LOOKED THROUGH PREVIOUS NURSING NOTES, AND SAW NO REFERENCE TO ANY OF THIS PATIENT'S BELONIGINGS. WILL CONTINUE TO SEARCH AND UPDATE THE PATIENT ON THE CELL PHONE SITUATION.
--- NOTE | 2024-01-29 12:30 | NUR ---
CALL MADE TO [facility] REGARDING PATIENT'S PHONE. [facility] STAFF WERE GOING TO LOOK FOR HIS PHONE IN THEIR BUILDING AND GIVE THIS NURSE A CALL BACK.
--- NOTE | 2024-01-29 15:38 | NUR ---
liner worker was informed by KELSEY Lowery that [facility] is involved with pt and seeking placement. She was informed pt has zoom court at 10:45am tomorrow and had no knowledge of this. KARRIE called [facility] CSU who reports pt is involuntary and they have no further updates except pt has procedural court tomorrow. Williams stated pt is number [facility] on [facility]. KARRIE spoke with KELSEY Lowery/KELSEY Sheth and Director Luda Saucedo who reports since pt is evaluated for OSH, he is involuntary. RN was informed to notify Director Meagan and Kezia of the above as it was not noted pt was already screened. Discharge Plan: court tomorrow 10:45am
--- NOTE | 2024-01-29 16:05 | NUR ---
Paperwork for the pt was brought over from the ER with information stating that the pt has court tomorrow at 11AM; paperwork states that court is to issue an Ex Parte Emergency Custody Order, a temporary custody order, and requesting that the court order treatment. Paperwork also states that pt is under an involuntary hold put in place by [facility]. This RN and other [facility] staff were unaware of both court and involuntary hold until receiving this paperwork that was faxed to the ER by [facility]. This [facility] work and she was unaware of this as well. This RN called [facility] and spoke with Adina; updated Adina on pts current condition. Hope states that since paperwork was already filed with the court they would like pt to remain on an involuntary hold under their order. This RN attempted to notify pt's special procedures technologist at [address] [place] [address]; was unable to reach at her provided office number and cell number.
--- NOTE | 2024-01-29 17:32 | NUR ---
Attempted to call pt's daughter Emilee to give her update on pt's current condition and plan of care. No answer and unable to leave voicemail.
[2024-01-30] VITALS (11 sets, daily range): BP systolic 110–131; BP diastolic 78–93; PULSE 64–87; TEMP 98.2–98.9; O2SAT 97
[2024-01-30 04:11] LABS: BASO % 0.5 % (0.0-2.0); EOS # 0.1 K/mm3 (0.0-0.7); EOS % 1.4 % (0.0-4.0); GRAN # 2.5 K/mm3 (1.4-6.5); GRAN % 66.8 % (42.2-75.2); LYMPH # 0.5 K/mm3 (1.2-3.4); LYMPH % 13.6 % (20.0-51.0); MEAN CELL VOLUME 105 fl (80.0-100.0); MEAN CORPUSCULAR HGB CONC 34 g/dl (33.0-37.0); MONO # 0.6 K/mm3 (0.1-0.6); MONO % 17.4 % (1.7-9.3); PLATELET COUNT 158 K/mm3 (130-400); RED BLOOD COUNT 2.42 M/mm3 (4.20-5.60); REDCELL DISTRIBUTION WIDTH-CV 14.2 % (11.5-14.5)
[2024-01-30 04:30] LABS: HEMATOCRIT 25.3 % (42.0-52.0); HEMOGLOBIN 8.7 g/dl (13.5-18.0); MEAN CORPUSCULAR HEMOGLOBIN 36 pg (27-31)
[2024-01-30 04:43] LABS: ALANINE AMINOTRANSFERASE 28 U/L (0-55); ALBUMIN 2.9 g/dL (3.5-5.0); ALKALINE PHOSPHATASE 62 U/L (40-150); ANION GAP 10 mmol/L (7-16); AST,SGOT 54 U/L (5-34); BILIRUBIN,TOTAL 0.4 mg/dL (0.2-1.2); CALCIUM 8.2 mg/dL (8.4-10.2); CHLORIDE 109 mEq/L (98-107); CREATININE, serum 0.59 mg/dL (0.72-1.25); GLUCOSE 117 mg/dL (70-99); MAGNESIUM 1.2 mg/dL (1.6-2.6); POTASSIUM 3.3 mEq/L (3.5-4.5); SODIUM 143 mEq/L (136-145); TOTAL PROTEIN 5.7 g/dl (6.2-8.1)
[2024-01-30 04:44] LABS: BLOOD UREA NITROGEN < 5 mg/dL (9-21)
--- NOTE | 2024-01-30 07:16 | NUR ---
THIS NURSE RECIEVED BEDSIDE REPORT FROM KELSEY LOZOYA. PATIENT IS RESTING QUIETLY IN BED. PATIENT AWARE OF INVOLUNTARY STATUS AND COURT THIS MORNING. PATIENT HAS A 20 G TO THE L WRIST, SALINE LOCKED. PATIENT IS WEARING SCDS AND TOLERATING THEM WELL. VITAL SIGNS ARE WNL. PATIENT'S GLASSES ARE ON BEDSIDE TABLE. BED IN LOW POSITION AND CALL LIGHT WITHIN THE PATIENT'S REACH.
[2024-01-30] MEDS ORDERED: Potassium Bicarbonate/Citrate 20 MEQ Effervescent TAB PO SCH (07:45)
--- NOTE | 2024-01-30 10:03 | NUR ---
MS. [address] HEAD FILTER TANK TENDER HELPER IS AT BEDSIDE DISCUSSING THE INVOLUNTARY STATUS AND COURT HEARING WITH PATIENT. PATIENT IS CALM AND UNDERSTANDING OF THE SITUATION. PATIENT IS ALERT AND ORIENTED X4. VITAL SIGNS WNL. PATIENT STATED A MODERATE AMOUNT OF ANXIOUSNESS DUE TO THE COURT HEARING AND TRYING TO GET HOME TO SEE HIS DAUGHTER DAPHNE. PATIENT NOT SHOWING ANY VISIBLE SIGNS OF TREMORS OR WITHDRAWAL. BED IS IN LOW POSITION, BED ALARM IS ON, AND CALL LIGHT IS WITHIN THE PATIENT'S REACH.
--- NOTE | 2024-01-30 10:50 | NUR ---
AT 1050, THIS NURSE WALKED INTO THE PATIENT'S ROOM TO HELP PLACE HIM BACK INTO THE BED. AT THIS TIME, THE PATIENT WAS NEAR THE BED WHEN HE BEGAN SHOWING SYMPTOMS OF R-SIDED WEAKNESS INCLUDING BOTH HIS R LEG AND R ARM, R SIDED FACIAL DROOPING, SLURRED SPEECH, AND A SLUGGISH R PUPIL. THIS NURSE PULLED KELSEY VENTURA TO HELP PLACE THE PATIENT THE REST OF THE WAY INTO BED. ONCE PLACED IN BED, THIS NURSE RAN VITAL SIGNS, BLOOD PRESSURE WAS 162/88. THIS NURSE CALLED DR. Steve SUTTON AND EXPLAINED THE SITUATION. DR. SUTTON ORDERED A STAT HEAD CT. THIS NURSE AND KELSEY MODI, TOOK THIS PATIENT DOWN TO CT TO GET THE CT SCAN COMPLETE. CT SCAN COMPLETE AND PATIENT BACK IN HIS ROOM. BED IS IN LOW POSITION, BED ALARM IS ON, AND CALL LIGHT IS WITHIN PATIENT'S REACH. IS CURRENTLY AT BEDSIDE NOW.
[2024-01-30] MEDS ORDERED: Magnesium Sulfate 4 GM/50 ML IV SOLN IV ONE (11:45)
--- NOTE | 2024-01-30 14:28 | NUR ---
wind turbine sheet metal worker assisted with pt's 10:45am meeting with appointed commonwealth attorney and 11am court for involuntary status. Pt motivation is getting to see his daughter, Emilee for 6 days who is from [place]. Pt reports he would like to return to his home with her and visit, then he is open to the [facility] or [facility] AFTER his daughter leaves. The court ultimately agreed to this and pt and was agreeable to waiting for medical clearance, increasing 3 Vyas to daily in the home, removing and not consuming any alcohol, and working with assisted outpatient treatment (court 02/11 1430 for this.) Pt was agreeable to this plan and was later informed by Dr. Steve Wu that he will discharge today. KARRIE was informed by KELSEY Sheth that pt daughter is refusing to drive him and with 3 Vyas is not waiting until 1615 for his magnesium to finish. KARRIE called [facility] KARRIE Phelps and left a voicemail to see if pt has transportation benefits. KARRIE also attempted to call [facility] KARRIE MAY. KARRIE called pt's daughter, Emilee [phone] to provide an update and see if she can transport pt. She reports being unable to pick him up due to pt's car tabs being . She was provided an update on the above plan and is agreeable. She states that arrived at the home and dumped all the alcohol out. She then attributes pt's behaviors to loneliness and agrees she is a good support for him. Emilee reports to be a skills trainer and her number frequently changes since it is an nydia-based number. She inquired about if pt has drug testing appointments scheduled and KARRIE advised at this time she was not aware of any. No further concerns. KARRIE spoke with KELSEY Sheth again and informed her daughter confirmed being unable to transport. RN states they still have not located pt's phone so he cannot order his own Uber. KARRIE advised she will order pt an Uber once he is ready, around 1630. Discharge Plan: home with 3 vyas support
[2024-01-30] MEDS ORDERED: Magnesium Oxide 400 MG TAB PO SCH (17:00)
--- NOTE | 2024-01-30 17:00 | NUR ---
PATIENT IS DRESSED, IV LINE DISCONTNUED, VITAL SIGN MACHINE DETACHED. PATIENT IS IN GOOD SPIRITS ABOUT GOING HOME. PATIENT'S CELL PHONE AND ARRIVAL CLOTHES FOUND BY SECURITY. PATIENT VITAL SIGNS WNL. PATIENT ESCORTED HOME BY AN UBER SET UP BY SOCIAL WORK. PATIENT IS WHEELED OUT BY THIS NURSE WITH ALL OF HIS BELONGINGS INCLUDING WALLET, WATCH, PHONE, CLOTHES, ONE SLIDE SHOE, DISCHARGE PACKET, AND WOUND CARE SUPPLIES.
== END 2024-01-30 17:00 | disposition home or self-care (01) | DRG 897 ==
LOC: COL.ER 19:50 → ICU 22:11
PROVIDERS: Emergency Medicine; Hospitalist; Physician Assistant; ADMIT Internal Medicine
DX: F10.239 Alcohol dependence with withdrawal, unspecified (principal); K50.90 Crohn's disease, unspecified, without complications; E87.20 Acidosis, unspecified; F23 Brief psychotic disorder; G40.909 Epilepsy, unspecified, not intractable, without status epilepticus; I10 Essential (primary) hypertension; F43.10 Post-traumatic stress disorder, unspecified; F32.A Depression, unspecified; G43.909 Migraine, unspecified, not intractable, without status migrainosus; K21.9 Gastro-esophageal reflux disease without esophagitis; K76.0 Fatty (change of) liver, not elsewhere classified; D53.9 Nutritional anemia, unspecified; E83.42 Hypomagnesemia; E87.6 Hypokalemia; S41.111A Laceration without foreign body of right upper arm, initial encounter; E78.5 Hyperlipidemia, unspecified; I95.9 Hypotension, unspecified; Y90.7 Blood alcohol level of 200-239 mg/100 ml; Z79.899 Other long term (current) drug therapy; Z91.148 Patient's other noncompliance with medication regimen for other reason; Z23 Encounter for immunization
CPT/HCPCS: J2060; J2470; J3360; J3411; J3475; J7030